=== PATIENT | male | born 1970 | race Caucasian/White ===

== ENCOUNTER 2019-06-04 13:45 | Emergency (ER) | payer SELFPAY ==
--- NOTE | 2019-06-04 13:52 | ERPHSYRPT ---
- History of Present Illness Time Seen by Provider: 06/04/19 13:52 Source: patient Exam Limitations: no limitations Physician History: The patient is a 48-year-old who presents with a chief complaint of a "cyst" noted to the left side of his groin. Onset reported was 4 days ago. 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 He denies fever, chills, history of diabetes mellitus and his last tetanus prophylaxis is unknown but he thinks is well over 10 years. Of note, the patient endorsed having what sounds to be a cutaneous abscess some number of years ago that reportedly grew out MRSA according to the patient's account. Currently, he is not complaining of a lot of pain and he is otherwise asymptomatic. States the pain has significantly gone down since the area started to spontaneous drain but initially was a throbbing/aching pain that was nonradiating and severe. Associated Symptoms: No nausea, No vomiting, No abdominal pain, No shortness of breath, No cough, No chest pain Allergies/Adverse Reactions: morphine Adverse Reaction (Verified 06/04/19 14:09) Hx Tetanus, Diphtheria Vaccination/Date Given: No Hx Influenza Vaccination/Date Given: No Hx Pneumococcal Vaccination/Date Given: No - Review of Systems Constitutional: No Fever, No Chills Abdominal/Gastrointestinal: No Symptoms Musculoskeletal: No Symptoms Skin: Other (Wound with induration and fluctance noted to left side of groin and with drainage) All Other Systems: Reviewed and Negative - Past Medical History Pertinent Past Medical History: No Neurological History: No Pertinent History ENT History: No Pertinent History Cardiac History: No Pertinent History Respiratory History: No Pertinent History Endocrine Medical History: No Pertinent History Musculoskeletal History: No Pertinent History GI Medical History: No Pertinent History History: No Pertinent History Psycho-Social History: No Pertinent History Male Reproductive Disorders: No Pertinent History Other Medical History: asthma as a child no current difficutly - Past Surgical History Past Surgical History: Yes Other Surgical History: I&D of left thigh - Social History Smoking Status: Current every day smoker How long have you smoked: 21yrs Exposure to second hand smoke: Yes Drug Use: none Patient Lives Alone: No - Nursing Vital Signs Nursing Vital Signs: Initial Vital Signs Pulse Rate 85 06/04/19 13:54 Respiratory Rate 18 06/04/19 13:54 Blood Pressure 114/66 06/04/19 13:54 O2 Sat by Pulse Oximetry 99 06/04/19 13:54 Pain Scale Pain Intensity 0 - Physical Exam General Appearance: no apparent distress, alert Eye Exam: PERRL/EOMI, No scleral icterus, No EOM palsy/anisocoria Ears, Nose, Throat Exam: other (Poor ) Neck Exam: normal inspection Respiratory Exam: normal breath sounds, lungs clear, airway intact, No respiratory distress Cardiovascular Exam: regular rate/rhythm, normal heart sounds, capillary refill <2 sec, No murmur, No friction rub, No gallop Gastrointestinal/Abdomen Exam: soft, No tenderness, No distention, No mass, No guarding, No ecchymosis Male Genitalia Exam: No hernia, No testicular tenderness, No testicular mass, No prostate tenderness, No prostate enlargement, No penile lesion, No penile discharge Rectal Exam: other (No evidence of perianal abscess or cellulitis) Extremity Exam: normal inspection Neurologic Exam: alert, oriented x 3, cooperative Skin Exam: other (There was a 5 x 5 cm area of induration and erythema noted to the left groin with a 1 to 2 cm area of central fluctuance with purulent/bloody drainage noted. There is no pain out of proportion upon palpation of this region or crepitus to suggest necrotizing soft tissue infection. There is no scrotal involvement or suprapubic abdominal wall involvement. There was no perianal or buttocks involvement.) SpO2 Interpretation: normal O2 Delivery: Room Air Procedures - Incision and Drainage Timeout: Performed Site: Left side of groin Anesthesia: 1% Lidocaine cc's of anesthesia: 4 Blade Size: 11 I & D Procedure: betadine prep, sterile drapes applied, culture obtained, gauze wick placed Results: small amount pus Progress: The patient underwent an incision and drainage after a field block and 1% lidocaine was performed. The patient tolerated the procedure well and there were no complications noted. - Course Nursing assessment & vital signs reviewed: Yes Ordered Tests: Active Orders 24 hr Category Date Time Status Wound Care STAT Care 06/04/19 14:08 Active CULTURE,WOUND Stat Lab 06/04/19 14:30 Received Medication Summary Discontinued Medications Generic Name Dose Route Start Last Admin Trade Name Yadira PRN Reason Stop Dose Admin Hydrocodone Bitart/Acetaminophen 1 tab 06/04/19 14:08 06/04/19 14:20 [place] 5/325 Mg PO 06/04/19 14:09 1 tab STAT ONE Administration Hydrocodone Bitart/Acetaminophen Confirm 06/04/19 14:14 [place] 5/325 Mg Administered 06/04/19 14:15 Dose 1 tab .ROUTE .STK-MED ONE Fentanyl Citrate 100 mcg 06/04/19 14:10 06/04/19 14:20 Sublimaze 100 Mcg/2 Ml INTRANASAL 06/04/19 14:11 100 mcg STAT ONE Administration Fentanyl Citrate Confirm 06/04/19 14:14 Sublimaze 100 Mcg/2 Ml Administered 06/04/19 14:15 Dose 100 mcg .ROUTE .STK-MED ONE Lidocaine HCl 5 ml 06/04/19 14:08 06/04/19 14:21 Xylocaine 1% Hcl 20 Ml Mdv IJ 06/04/19 14:09 5 ml STAT ONE Administration Lidocaine HCl Confirm 06/04/19 14:14 Xylocaine 1% Hcl 20 Ml Mdv Administered 06/04/19 14:15 Dose 10 ml .ROUTE .STK-MED ONE Tetanus/Diphtheria Toxoids Adsorbed 0.5 ml 06/04/19 14:08 06/04/19 14:19 Tenivac Vial IM 06/04/19 14:09 0.5 ml .ONCE ONE Administration Tetanus/Diphtheria Toxoids Adsorbed Confirm 06/04/19 14:14 Tenivac Vial Administered 06/04/19 14:15 Dose 0.5 ml IM .STK-MED ONE - Progress Progress: improved Progress Note: 06/04/19 16:30 Toxic appearance. I&D was performed and the outlined area of infection was traced with a skin marker. The patient's tetanus prophylaxis was updated and he was discharged with a prescription for Bactrim to take for antibiotic therapy this is likely MRSA. He was instructed to apply warm compresses to the affected area at least a couple times a day to promote ongoing drainage and to return either to the emergency department or follow-up at an urgent care with his primary care provider within 48 hours for a wound check. ED return precautions for wound infection was also given. The patient agreed with and verbally understood the discharge plan. Counseled pt/family regarding: diagnosis, need for follow-up - Departure Departure Disposition: Home Clinical Impression: Cutaneous abscess Condition: Stable Critical Care Time: No Referrals: NOE MONTERO [Primary Care Provider] - Instructions: Abscess Incision and Drainage Additional Instructions: Please follow-up in 48 hours for a wound check. You can return to the emergency department or be seen by her primary care physician or an urgent care to have this done. Please return to department immediately if your pain becomes worse or if you start to develop fever and chills in conjunction with your pain. So please return to department if you notice any redness or swelling extended beyond 1/4 inch from the outlined area of your abscess. Prescriptions: Hydrocodone/APAP 5-325 Tab^^^ [[place] 5-325 Tablet^^^] 1 tab PO Q6HPRN PRN #6 tablet MDD 6 PRN Reason: Pain Smz/Tmp Ds Tablet [Bactrim Ds Tablet] 1 udtab PO BID #14 tablet
[2019-06-04] MEDS ORDERED: SUBLIMAZE 100 MCG/2 ML ONE (14:14)
[2019-06-04] MEDS ORDERED: XYLOCAINE 1% HCL 20 ML MDV ONE (14:14)
[2019-06-04] MEDS ORDERED: NORCO 5/325 MG ONE (14:14)
[2019-06-04] MEDS ORDERED: TENIVAC VIAL IM ONE (14:14)
[2019-06-04] MEDS: TENIVAC VIAL IM ONE (14:19)
[2019-06-04] MEDS: SUBLIMAZE 100 MCG/2 ML INTRANASAL ONE (14:20)
[2019-06-04] MEDS: NORCO 5/325 MG PO ONE (14:20)
[2019-06-04] MEDS: XYLOCAINE 1% HCL 20 ML MDV IJ ONE (14:21)
[2019-06-04 14:24] VITALS: BP 114/66; PULSE 85; O2SAT 99
== END 2019-06-04 15:23 | disposition home or self-care (01) ==
LOC: ED 13:45
DX: L02.214 Cutaneous abscess of groin (principal); Z86.14 Personal history of Methicillin resistant Staphylococcus aureus infection
CPT/HCPCS: 10060; 87070; 90471; 90714; 96372; 99284; J3010; A9270-GY

== ENCOUNTER 2020-03-30 23:58 | Emergency (ER) | payer OTHER ==
[2020-03-31] MEDS ORDERED: Bicillin L-A 1.2 Mu/2ML SYRINGE IM ONE ×2 (00:38→00:44)
[2020-03-31] MEDS ORDERED: TORAdol 30 mg Injection IM ONE (00:39)
[2020-03-31] MEDS ORDERED: TORAdol 30 mg Injection ONE (00:44)
--- NOTE | 2020-03-31 00:45 | ERPHSYRPT ---
- History of Present Illness Time Seen by Provider: 03/31/20 00:45 Source: patient Exam Limitations: no limitations Physician History: Patient is a 49-year-old male presents to our ED with complaints of left-sided jaw swelling. Symptoms started 2 days ago. Patient states that he has a history of bad dentition and carious teeth. Patient's pain described as an ache that is well localized. No radiation. Pain rated 8 out of 10. Pain reproduced with mastication. No difficulty swallowing or maintaining secretions. No trauma. No fever. No headache. No nausea or vomiting. No chest pain or shortness of breath. Symptoms are moderate in intensity. Percussion to tooth #21 reproduces symptoms. Patient voices no other complaints at this time. Patient currently has an appointment scheduled with his dentist tomorrow morning at 8 AM. Timing/Duration: day(s) (2 days ago) Severity: moderate Modifying Factors: Improves With: other (No worsening symptoms. Patient has not taken any oral analgesics.) Associated Symptoms: denies symptoms, No nausea, No vomiting, No abdominal pain, No shortness of breath, No heartburn, No diaphoresis, No cough, No chest pain, No fever, No headaches, No loss of appetite, No malaise, No syncope, No seizure, No weakness Allergies/Adverse Reactions: morphine Adverse Reaction (Verified 03/31/20 00:33) Hx Tetanus, Diphtheria Vaccination/Date Given: No Hx Influenza Vaccination/Date Given: No Hx Pneumococcal Vaccination/Date Given: No Travel Risk - International Travel Have you traveled outside of the country in past 3 weeks: No (N) If Yes, where;: N - Coronavirus Screening Are you exhibiting any of the following symptoms?: No Close contact with a COVID-19 positive Pt in past 14-21 Days: No - Review of Systems Constitutional: No Symptoms, No Fever, No Chills Eyes: No Symptoms Ears, Nose, & Throat: No Symptoms Respiratory: No Symptoms, No Cough, No Dyspnea Cardiac: No Symptoms, No Chest Pain, No Edema, No Syncope Abdominal/Gastrointestinal: No Symptoms, No Abdominal Pain, No Nausea, No Vomiting, No Diarrhea Genitourinary Symptoms: No Symptoms, No Dysuria Musculoskeletal: No Symptoms, No Back Pain, No Neck Pain Skin: No Symptoms, No Rash Neurological: No Symptoms, No Dizziness, No Focal Weakness, No Sensory Changes Psychological: No Symptoms Endocrine: No Symptoms Hematologic/Lymphatic: No Symptoms Immunological/Allergic: No Symptoms All Other Systems: Reviewed and Negative - Past Medical History Pertinent Past Medical History: No Neurological History: No Pertinent History ENT History: No Pertinent History Cardiac History: No Pertinent History Respiratory History: No Pertinent History Endocrine Medical History: No Pertinent History Musculoskeletal History: No Pertinent History GI Medical History: No Pertinent History History: No Pertinent History Psycho-Social History: No Pertinent History Male Reproductive Disorders: No Pertinent History Other Medical History: asthma as a child no current difficutly - Past Surgical History Past Surgical History: Yes Other Surgical History: I&D of left thigh - Social History Smoking Status: Current every day smoker How long have you smoked: 21yrs Exposure to second hand smoke: Yes Drug Use: none Patient Lives Alone: No - Nursing Vital Signs Nursing Vital Signs: Initial Vital Signs Temperature 98.3 F 03/31/20 00:35 Pulse Rate 86 03/31/20 00:35 Respiratory Rate 18 03/31/20 00:35 Blood Pressure 125/88 03/31/20 00:35 O2 Sat by Pulse Oximetry 97 03/31/20 00:35 Pain Scale Pain Intensity 8 - Physical Exam General Appearance: no apparent distress, alert Eye Exam: PERRL/EOMI, eyes nml inspection Ears, Nose, Throat Exam: normal ENT inspection, TMs normal, pharynx normal, moist mucous membranes, other (Multiple carious teeth. Tooth #21 is subluxed. Adjacent to this tooth gingiva is swollen tender. There is no erythema to the floor of the mouth. No signs of Ludwigs angina.) Neck Exam: normal inspection, non-tender, supple, full range of motion Respiratory Exam: normal breath sounds, lungs clear, No respiratory distress Cardiovascular Exam: regular rate/rhythm, normal heart sounds, normal peripheral pulses Gastrointestinal/Abdomen Exam: soft, normal bowel sounds, No tenderness, No mass Back Exam: normal inspection, normal range of motion, No CVA tenderness, No vertebral tenderness Extremity Exam: normal inspection, normal range of motion, pelvis stable Neurologic Exam: alert, oriented x 3, cooperative, normal mood/affect, nml cerebellar function, nml station & gait, sensation nml, No motor deficits Skin Exam: normal color, warm, dry, No rash Lymphatic Exam: No adenopathy SpO2 Interpretation: normal SpO2: 97 O2 Delivery: Room Air - Course Nursing assessment & vital signs reviewed: Yes Ordered Tests: Medication Summary Discontinued Medications Generic Name Dose Route Start Last Admin Trade Name Yadira PRN Reason Stop Dose Admin Ketorolac Tromethamine 60 mg 03/31/20 00:39 03/31/20 00:48 Toradol 30 Mg Injection IM 03/31/20 00:40 60 mg STAT ONE Administration Ketorolac Tromethamine Confirm 03/31/20 00:44 Toradol 30 Mg Injection Administered 03/31/20 00:45 Dose 60 mg .ROUTE .STK-MED ONE Penicillin G Benzathine 1.2 mu 03/31/20 00:38 03/31/20 00:49 Bicillin L-A 1.2 Mu/2ml Syringe IM 03/31/20 00:39 1.2 mu STAT ONE Administration Penicillin G Benzathine Confirm 03/31/20 00:44 Bicillin L-A 1.2 Mu/2ml Syringe Administered 03/31/20 00:45 Dose 1.2 mu IM .STK-MED ONE - Progress Progress: improved Progress Note: 03/31/20 00:56 Patient reassessed. Pain improved after administration of IM Toradol. Patient received a dose of Bicillin in our ED. A prescription for penicillin VK was forwarded to patient's pharmacy. Patient tolerating p.o. No trismus no drooling no airway compromise. No indication for admission or further work-up at this time. Will discharge home. Patient will follow up with his dentist tomorrow as scheduled. Patient voices no other complaints concerns at this time. Counseled pt/family regarding: diagnosis, need for follow-up - Departure Departure Disposition: Home Clinical Impression: Dental abscess, Carious teeth Condition: Stable Critical Care Time: No Referrals: NOE MONTERO [Primary Care Provider] - Instructions: Tooth Abscess (DC), Tooth Decay, Adult (DC), Dental Pain (DC) Additional Instructions: Discharge/Care Plan SADIELORE ANGEL was seen on 03/31/20 in the Emergency Room. The patient was counseled regarding Diagnosis,Lab results, Imaging studies, need for follow up and when to return to the Emergency Room. Prescriptions given: Discharge Note I have spoken with the patient and/or caregivers. I have explained the patient's condition, diagnosis and treatment plan based on the information available to me at this time. I have answered the patient's and/or caregiver's questions and addressed any concerns. The patient and/or caregivers have as good understanding of the patient's diagnosis, condition and treatment plan as can be expected at this point. The vital signs have been stable. The patient's condition is stable and appropriate for discharge from the emergency department. The patient will pursue further outpatient evaluation with the primary care physician or other designated or consulting physician as outlined in the discharge instructions. The patient and/or caregivers are agreeable to this plan of care and follow-up instructions have been explained in detail. The patient and/or caregivers have received these instruction. The patient/and or caregivers are aware that any significant change in condition or worsening of symptoms should prompt an immediate return to this or the closest emergency department or call 911. Prescriptions: Penicillin V Potassium 500 mg PO TID 21 Days #7 tablet
[2020-03-31 01:04] VITALS: BP 119/84; PULSE 85; O2SAT 96
== END 2020-03-31 01:04 | disposition home or self-care (01) ==
LOC: ED 23:58
DX: K04.7 Periapical abscess without sinus (principal); K02.9 Dental caries, unspecified
CPT/HCPCS: 96372; 99284; J0561; J1885

== ENCOUNTER 2020-12-12 10:37 | Emergency (ER) | payer OTHER ==
[2020-12-12] MEDS ORDERED: Sodium Chloride 0.9% 1000 ML 1,000 ML IV STA (11:49)
[2020-12-12] MEDS ORDERED: Sodium Chloride 0.9% 1000 ML 1,000 ML ONE (11:52)
[2020-12-12 12:16] LABS: Absolute Neutrophil Ct (ANC) 4.32 (1.4-6.9); BASOPHIL % 0.6 % (0.0-0.4); Basophil (Absolute #) 0.04 (0-0.4); Eosinophil % 6.7 % (0.00-5.0); Eosinophil (Absolute #) 0.46 (0-0.5); Hematocrit 49.1 % (42-50); Hemoglobin 16.1 gm/dl (12.5-18.0); Lymphocyte (Absolute #) 1.52 (1.0-4.6); Lymphocytes % 22.1 % (24.0-44.0); Mean Cell Volume 91.3 fl (78-100); Mean Corpuscular Hemoglobin 29.9 pg (26-32); Mean Corpuscular Hgb Concent. 32.8 g/dl (32-36); Mean Platelet Volume 10.6 fl (7.5-11.0); Monocyte (Absolute #) 0.55 (0.0-1.3); Neutrophil % 62.6 % (36.0-66.0); Platelet Count 179 K/mm3 (150-450); Red Blood Count 5.38 M/mm3 (4.1-5.6); Red Cell Distribution Width 13.6 % (11.5-14.0); White Blood Count 6.9 K/mm3 (4.0-10.5)
[2020-12-12 12:17] LABS: INR 0.98 (0.8-3.0); PROTIME 11.6 SECONDS (9.4-12.5)
[2020-12-12 12:20] LABS: PTT 32.6 SECONDS (25.1-36.5)
[2020-12-12 12:35] LABS: ALBUMIN 4.3 g/dL (3.5-5.0); ANION GAP 11.9 MEQ/L (5-15); BILIRUBIN,TOTAL 0.7 mg/dL (0.2-1.3); Calcium 9.4 mg/dL (8.4-10.2); Creatinine 1 1.35 mg/dL (0.66-1.25); EST GLOMERULAR FILTRATION RATE 59.7 ML/MIN; Potassium 4.5 mmol/L (3.5-5.1); Total Protein 7.6 g/dL (6.3-8.2)
--- NOTE | 2020-12-12 13:00 | ERPHSYRPT ---
- History of Present Illness Time Seen by Provider: 12/12/20 11:18 Historian: patient Exam Limitations: no limitations Patient Subjective Stated Complaint: PT states "I went to the bathroom and my stool was harder than normal and I noticed the toilet had quite a bit of bright red blood in it. I am having just a little belly pain as well." Triage Nursing Assessment: Pt presented alert and oriented X 3, skin pwd. Pt ambulates with an upright steady gait, able to speak in clear full sentences. pt in no apparent respiratory distress. Physician History: 50 years old male with family history of colon cancer presented in the ER with chief complaint of rectal bleed off and on for the last 3 days. Patient reports he has history of constipation and noticed some blood with bowel movement 3 days ago and this has been happening since then and total of 5 episodes with blood towards the end of the stool and prior to arrival was quite a bit. Does have history of hemorrhoids and do not think it is hemorrhoidal bleeding as it does not hurt to defecate but has generalized abdominal discomfort. No fever or chills reported. No history of colonoscopy done. Not taking any blood thinners. Timing/Duration: day(s) (3), intermittent, sudden, worse Activities at Onset: other Quality: fullness Abdominal Pain Onset Location: generalized abdomen Pain Radiation: no radiation Severity of Pain-Max: mild Severity of Pain-Current: mild Modifying Factors: Improves With: nothing Associated Symptoms: denies symptoms Previous symptoms: no prior history Allergies/Adverse Reactions: morphine Adverse Reaction (Verified 03/31/20 00:33) Home Medications: No Reportable Medications [No Reported Medications] 12/12/20 [History] Hx Tetanus, Diphtheria Vaccination/Date Given: No Hx Influenza Vaccination/Date Given: No Hx Pneumococcal Vaccination/Date Given: No Immunizations Up to Date: Yes Travel Risk - International Travel Have you traveled outside of the country in past 3 weeks: No - Coronavirus Screening Are you exhibiting any of the following symptoms?: No Close contact with a COVID-19 positive Pt in past 14-21 Days: No - Vaccine Status Have you recieved a Covid-19 vaccination: No - Review of Systems Constitutional: No Symptoms Eyes: No Symptoms Ears, Nose, & Throat: No Symptoms Respiratory: No Symptoms Cardiac: No Symptoms Abdominal/Gastrointestinal: Abdominal Pain, Hematochezia Genitourinary Symptoms: No Symptoms Musculoskeletal: No Symptoms Skin: No Symptoms Neurological: No Symptoms Psychological: No Symptoms Endocrine: No Symptoms Hematologic/Lymphatic: No Symptoms Immunological/Allergic: No Symptoms - Past Medical History Pertinent Past Medical History: No Neurological History: No Pertinent History ENT History: No Pertinent History Cardiac History: No Pertinent History Respiratory History: No Pertinent History Endocrine Medical History: No Pertinent History Musculoskeletal History: No Pertinent History GI Medical History: No Pertinent History History: No Pertinent History Psycho-Social History: No Pertinent History Male Reproductive Disorders: No Pertinent History Other Medical History: asthma as a child no current difficutly - Past Surgical History Past Surgical History: Yes Other Surgical History: I&D of left thigh - Social History Smoking Status: Current every day smoker How long have you smoked: 21yrs Exposure to second hand smoke: Yes Drug Use: none Patient Lives Alone: No - Nursing Vital Signs Nursing Vital Signs: Initial Vital Signs Temperature 97.5 F 12/12/20 10:48 Pulse Rate 71 12/12/20 10:48 Respiratory Rate 20 12/12/20 10:48 Blood Pressure 120/69 12/12/20 10:48 O2 Sat by Pulse Oximetry 97 12/12/20 10:48 Pain Scale Pain Intensity 2 - Physical Exam General Appearance: no apparent distress, alert Eye Exam: PERRL/EOMI, eyes nml inspection Ears, Nose, Throat Exam: normal ENT inspection, pharynx normal Neck Exam: normal inspection, non-tender, supple, full range of motion Respiratory Exam: normal breath sounds, lungs clear Cardiovascular Exam: regular rate/rhythm, normal heart sounds Gastrointestinal/Abdomen Exam: soft, normal bowel sounds, No tenderness Rectal Exam: normal exam, normal rectal tone, blood, other (Normal tone. No fissure or external hemorrhoids but does have fresh blood), No hemorrhoids Extremity Exam: normal inspection, normal range of motion Neurologic Exam: alert, oriented x 3, cooperative Skin Exam: normal color SpO2 Interpretation: normal SpO2: 98 O2 Delivery: Room Air Ordered Tests: Active Orders 24 hr Category Date Time Status IV Insertion STAT Care 12/12/20 11:49 Active ABDOMEN AND PELVIS W CONTRAST [CT] Stat Exams 12/12/20 11:49 Taken CBC W DIFF Stat Lab 12/12/20 12:00 Completed CMP Stat Lab 12/12/20 12:00 Completed LIPASE Stat Lab 12/12/20 12:00 Completed PROTIME WITH INR Stat Lab 12/12/20 12:00 Completed PTT Stat Lab 12/12/20 12:00 Completed UA W/RFX UR CULTURE Stat Lab 12/12/20 12:22 Completed Medication Summary Discontinued Medications Generic Name Dose Route Start Last Admin Trade Name Yadira PRN Reason Stop Dose Admin Sodium Chloride 1,000 mls @ 999 mls/hr 12/12/20 11:49 12/12/20 12:55 Sodium Chloride 0.9% 1000 Ml IV 12/12/20 12:49 Infused .Q1H1M STA Infusion Sodium Chloride Confirm 12/12/20 11:52 Sodium Chloride 0.9% 1000 Ml Administered 12/12/20 11:53 Dose 1,000 mls @ ud .ROUTE .STK-MED ONE Lab/Rad Data: Laboratory Result Diagrams 12/12/20 12:00 12/12/20 12:00 Laboratory Results 12/12/20 12/12/20 12/12/20 Range/Units 12:22 12:00 12:00 WBC (4.0-10.5) K/mm3 RBC (4.1-5.6) M/mm3 Hgb (12.5-18.0) gm/dl Hct (42-50) % MCV (78-100) fl MCH (26-32) pg MCHC (32-36) g/dl RDW (11.5-14.0) % Plt Count (150-450) K/mm3 MPV (7.5-11.0) fl Gran % (36.0-66.0) % Eos # (Auto) (0-0.5) Absolute Lymphs (auto) (1.0-4.6) Absolute Monos (auto) (0.0-1.3) Lymphocytes % (24.0-44.0) % Monocytes % (0.0-12.0) % Eosinophils % (0.00-5.0) % Basophils % (0.0-0.4) % Absolute Granulocytes (1.4-6.9) Basophils # (0-0.4) PT 11.6 (9.4-12.5) SECONDS INR 0.98 (0.8-3.0) APTT 32.6 (25.1-36.5) SECONDS Sodium 137 (137-145) mmol/L Potassium 4.5 (3.5-5.1) mmol/L Chloride 101 (98-107) mmol/L Carbon Dioxide 29 (22-30) mmol/L Anion Gap 11.9 (5-15) MEQ/L BUN 16 (9-20) mg/dL Creatinine 1.35 H (0.66-1.25) mg/dL Estimated GFR 59.7 ML/MIN Glucose 93 (74-106) mg/dL Calcium 9.4 (8.4-10.2) mg/dL Total Bilirubin 0.70 (0.2-1.3) mg/dL AST 44 (17-59) U/L ALT 45 (0-50) U/L Alkaline Phosphatase 126 (38-126) U/L Serum Total Protein 7.6 (6.3-8.2) g/dL Albumin 4.3 (3.5-5.0) g/dL Lipase 78 (23-300) U/L Urine Color YELLOW (YELLOW) Urine Appearance CLEAR (CLEAR) Urine pH 7.0 (5-6) Ur Specific [place] 1.006 (1.005-1.025) Urine Protein NEGATIVE (Negative) Urine Ketones NEGATIVE (NEGATIVE) Urine Blood NEGATIVE (0-5) Álvaro/ul Urine Nitrite NEGATIVE (NEGATIVE) Urine Bilirubin NEGATIVE (NEGATIVE) Urine Urobilinogen NEGATIVE (0-1) mg/dL Ur Leukocyte Esterase NEGATIVE (NEGATIVE) Urine WBC (Auto) NONE (0-5) /HPF Urine RBC (Auto) NONE (0-2) /HPF U Epithel Cells (Auto) NONE (FEW) /HPF Urine Bacteria (Auto) NONE (NEGATIVE) /HPF Urine Culture Reflexed NO (NO) Urine Glucose NEGATIVE (NEGATIVE) mg/dL 12/12/20 Range/Units 12:00 WBC 6.9 (4.0-10.5) K/mm3 RBC 5.38 (4.1-5.6) M/mm3 Hgb 16.1 (12.5-18.0) gm/dl Hct 49.1 (42-50) % MCV 91.3 (78-100) fl MCH 29.9 (26-32) pg MCHC 32.8 (32-36) g/dl RDW 13.6 (11.5-14.0) % Plt Count 179 (150-450) K/mm3 MPV 10.6 (7.5-11.0) fl Gran % 62.6 (36.0-66.0) % Eos # (Auto) 0.46 (0-0.5) Absolute Lymphs (auto) 1.52 (1.0-4.6) Absolute Monos (auto) 0.55 (0.0-1.3) Lymphocytes % 22.1 L (24.0-44.0) % Monocytes % 8.0 (0.0-12.0) % Eosinophils % 6.7 H (0.00-5.0) % Basophils % 0.6 (0.0-0.4) % Absolute Granulocytes 4.32 (1.4-6.9) Basophils # 0.04 (0-0.4) PT (9.4-12.5) SECONDS INR (0.8-3.0) APTT (25.1-36.5) SECONDS Sodium (137-145) mmol/L Potassium (3.5-5.1) mmol/L Chloride (98-107) mmol/L Carbon Dioxide (22-30) mmol/L Anion Gap (5-15) MEQ/L BUN (9-20) mg/dL Creatinine (0.66-1.25) mg/dL Estimated GFR ML/MIN Glucose (74-106) mg/dL Calcium (8.4-10.2) mg/dL Total Bilirubin (0.2-1.3) mg/dL AST (17-59) U/L ALT (0-50) U/L Alkaline Phosphatase (38-126) U/L Serum Total Protein (6.3-8.2) g/dL Albumin (3.5-5.0) g/dL Lipase (23-300) U/L Urine Color (YELLOW) Urine Appearance (CLEAR) Urine pH (5-6) Ur Specific [place] (1.005-1.025) Urine Protein (Negative) Urine Ketones (NEGATIVE) Urine Blood (0-5) Álvaro/ul Urine Nitrite (NEGATIVE) Urine Bilirubin (NEGATIVE) Urine Urobilinogen (0-1) mg/dL Ur Leukocyte Esterase (NEGATIVE) Urine WBC (Auto) (0-5) /HPF Urine RBC (Auto) (0-2) /HPF U Epithel Cells (Auto) (FEW) /HPF Urine Bacteria (Auto) (NEGATIVE) /HPF Urine Culture Reflexed (NO) Urine Glucose (NEGATIVE) mg/dL - Progress Progress: improved, re-examined Progress Note: 12/12/20 15:28 50 years old is evaluated for rectal bleed and some abdominal discomfort. Did not want any pain medications. Given fluid bolus. Has stable H&H. Stable chemistries. I have obtained CT abdomen pelvis with contrast which is negative for colitis/diverticulitis or any other acute findings. Patient did not have any bleeding while in the ER. Possible could be internal hemorrhoids or some polyps bleeding. Is not hemodynamically compromised. Not on any blood thinner. Recommended avoiding NSAIDs and outpatient follow-up with GI for scopes. Discussed signs symptoms of worsening needing return to ER which he seems understanding. Stable for discharge. Counseled pt/family regarding: lab results, diagnosis, need for follow-up, rad results - Departure Departure Disposition: Home Clinical Impression: Rectal bleed Abdominal pain Qualifiers: Abdominal location: unspecified location Qualified Code(s): R10.9 - Unspecified abdominal pain Condition: Stable Critical Care Time: No Referrals: NOE MONTERO [Primary Care Provider] - (Call tomorrow for reevaluation.) TRIPP MONGE MD [CONSULTING PHYSICIAN] - (Call tomorrow for reevaluation) Instructions: Gastrointestinal Bleeding (DC) Additional Instructions: Drink plenty of fluids. Do not take ibuprofen/naproxen or any other NSAIDs. Take MiraLAX/stool softener to avoid constipation. Follow-up with primary care and gastroenterology for reevaluation and you probably needs endoscopy/colonoscopy to further evaluate the source of bleeding. Return to ER if has worsening of bleeding/abdominal pain/fever chills etc.
[2020-12-12 13:01] LABS: Appearance CLEAR (CLEAR); Bilirubin NEGATIVE (NEGATIVE); Blood NEGATIVE Ery/ul (0-5); Glucose NEGATIVE (NEGATIVE); Ketones NEGATIVE (NEGATIVE); Leukocyte Esterase NEGATIVE (NEGATIVE); Nitrite NEGATIVE (NEGATIVE); Protein,Urine Dip NEGATIVE (Negative); Specific Gravity 1.006 (1.005-1.025); Urobilinogen NEGATIVE mg/dL (0-1)
[2020-12-12 15:34] VITALS: BP 103/75; PULSE 61; O2SAT 97
--- NOTE | 2020-12-12 18:02 | XRAY ---
Indication: Abdomen/pelvic pain. Blood in stool. Multiple contiguous axial images obtained through the abdomen and pelvis using 80 cc Isovue 370 contrast. Comparison: None Lung bases demonstrates minimal bibasilar dependent atelectasis and small left lower lobe calcified granuloma. Heart not enlarged. Small hiatal hernia. Noncontrasted stomach and bowel loops appear nonobstructed. Normal appendix. Mild scattered colonic fecal debris throughout. No free fluid/air. Chronic pancreatitis calcifications. Tiny 4 mm hepatic cyst near the dome of the diaphragm. Remaining liver, gallbladder, pancreas, spleen, adrenal glands, kidneys, ureters, bladder, and aorta are unremarkable. No pathologic retroperitoneal lymphadenopathy. Osseous structures intact. No ventral or inguinal hernias. Impression: 1. Small hiatal hernia, mild diffuse fecal stasis, tiny hepatic cyst, chronic pancreatitis calcifications, and old granulomatous disease. 2. Remaining CT abdomen/pelvis with contrast exam is negative. Comment: Preliminary interpretation made by C. No critical discrepancy.
== END 2020-12-12 15:35 | disposition home or self-care (01) ==
LOC: ED 10:37
DX: K62.5 Hemorrhage of anus and rectum (principal); R10.9 Unspecified abdominal pain; K92.1 Melena
CPT/HCPCS: 36000; 36415; 74177; 80053; 81001; 83690; 85025; 85610; 85730; 96360; 99284

== ENCOUNTER 2021-07-23 11:28 | Emergency (ER) | payer OTHER ==
[2021-07-23] MEDS ORDERED: Zofran 4 MG/2 ML VIAL IV ONE (11:43)
[2021-07-23] MEDS ORDERED: Sodium Chloride 0.9% 1000 ML 1,000 ML IV STA (11:43)
[2021-07-23] MEDS ORDERED: Sodium Chloride 0.9% 1000 ML 1,000 ML ONE (11:48)
[2021-07-23] MEDS ORDERED: Zofran 4 MG/2 ML VIAL ONE (11:48)
--- NOTE | 2021-07-23 12:09 | ERPHSYRPT ---
- History of Present Illness Time Seen by Provider: 07/23/21 11:36 Source: patient Exam Limitations: no limitations Patient Subjective Stated Complaint: Pt c/o of cough, chest congestion, headache, body aches, fever, vomiting for almost a week Triage Nursing Assessment: Pt was brought to the ER by his , vitals wnl, rates overall body pain as 9/10, last vomited 2 days ago, denies diarrhea, non productive cough, pulses normal, no difficulties with breathing, walked into the ER with no difficulties, doesn't appear to be in any distress Physician History: 50yo with h/o heavy tobacco use presented with 1 week h/o flu like sx with negative outpatient COVID 19. 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 c/o nausea /vomiting occasionally without abd pain. has smoker cough but c/o wosening . Timing/Duration: week(s) (1), gradual onset, worse Cough Quality/Degree: productive cough Modifying Factors: Worsens With: coughing, exertion Associated Symptoms: fever, chills, chest pain/soreness, cough, dizziness, headache, muscle aches, nasal congestion, shortness of breath, sinus infection, sore throat, wheezing Allergies/Adverse Reactions: morphine Adverse Reaction (Verified 07/23/21 11:44) Hx Tetanus, Diphtheria Vaccination/Date Given: No Hx Influenza Vaccination/Date Given: No Hx Pneumococcal Vaccination/Date Given: No Travel Risk - International Travel Have you traveled outside of the country in past 3 weeks: No - Coronavirus Screening Are you exhibiting any of the following symptoms?: Yes Symptoms: Fever, Cough: New Onset, Vomiting/Diarrhea, Headaches/Body Aches/Fatigue - Vaccine Status Have you recieved a Covid-19 vaccination: No - Review of Systems Constitutional: Fever, Chills, Fatigue, Weakness Eyes: No Symptoms Ears, Nose, & Throat: Nose Congestion Respiratory: Cough, Dyspnea, Wheezing Cardiac: No Palpitations, No Syncope Abdominal/Gastrointestinal: Nausea, Vomiting Genitourinary Symptoms: No Symptoms Musculoskeletal: Myalgias Skin: No Symptoms Neurological: Headache Psychological: Anxiety Endocrine: No Symptoms Hematologic/Lymphatic: No Symptoms Immunological/Allergic: No Symptoms - Past Medical History Pertinent Past Medical History: No Neurological History: No Pertinent History ENT History: No Pertinent History Cardiac History: No Pertinent History Respiratory History: No Pertinent History Endocrine Medical History: No Pertinent History Musculoskeletal History: No Pertinent History GI Medical History: No Pertinent History History: No Pertinent History Psycho-Social History: No Pertinent History Male Reproductive Disorders: No Pertinent History Other Medical History: asthma as a child no current difficutly - Past Surgical History Past Surgical History: Yes Other Surgical History: I&D of left thigh - Social History Smoking Status: Current every day smoker How long have you smoked: 21yrs Exposure to second hand smoke: Yes Drug Use: none Patient Lives Alone: No - Nursing Vital Signs Nursing Vital Signs: Initial Vital Signs O2 Sat by Pulse Oximetry 95 07/23/21 11:36 Pain Scale Pain Intensity 0 - Physical Exam General Appearance: no apparent distress, alert, anxiety Eye Exam: PERRL/EOMI, eyes nml inspection Ears, Nose, Throat Exam: normal ENT inspection, TMs normal, pharynx normal Neck Exam: normal inspection, non-tender, supple, full range of motion, No meningismus Respiratory Exam: diminished breath sounds, rhonchi, wheezing Cardiovascular Exam: regular rate/rhythm, normal heart sounds Gastrointestinal/Abdomen Exam: soft, normal bowel sounds, No tenderness, No guarding Back Exam: normal inspection, normal range of motion Extremity Exam: normal inspection, normal range of motion, pelvis stable Neurologic Exam: alert, oriented x 3, cooperative Skin Exam: normal color SpO2 Interpretation: normal SpO2: 95 O2 Delivery: Room Air Ordered Tests: Active Orders 24 hr Category Date Time Status Hemmer Chainstitch STAT Care 07/23/21 12:12 Completed EKG-ER Only STAT Care 07/23/21 12:12 Completed IV Insertion STAT Care 07/23/21 11:43 Completed IV Insertion-2nd Peripheral STAT Care 07/23/21 12:04 Completed NPO (ED) STAT Care 07/23/21 11:43 Completed Oxygen-ED Only Nasal Cannula 2 lpm Care 07/23/21 11:55 Completed CHEST 1 VIEW (PORTABLE) Stat Exams 07/23/21 11:43 Completed CHEST WITH CONTRAST [CT] Stat Exams 07/23/21 12:09 Completed CBC W DIFF Stat Lab 07/23/21 11:40 Completed CMP Stat Lab 07/23/21 11:40 Completed LIPASE Stat Lab 07/23/21 11:40 Completed Lactic Acid Stat Lab 07/23/21 13:58 Completed Manual Differential NC Stat Lab 07/23/21 11:40 Completed Respiratory Therapy Assessment ONCE RT 07/23/21 14:51 Completed Medication Summary Discontinued Medications Generic Name Dose Route Start Last Admin Trade Name Yadira PRN Reason Stop Dose Admin Hydrocodone Bitart/Acetaminophen 10 ml 07/23/21 15:14 07/23/21 15:18 Hydrocodone/Acetaminophen 5 Ml Udcup PO 07/23/21 15:15 10 ml STAT STA Administration Hydrocodone Bitart/Acetaminophen Confirm 07/23/21 15:17 Hydrocodone/Acetaminophen 5 Ml Udcup Administered 07/23/21 15:18 Dose 10 ml .ROUTE .STK-MED ONE Albuterol/Ipratropium 3 ml 07/23/21 14:07 07/23/21 14:35 Ipratropium/Albuterol Sulfate 3 Ml Ampul.Neb IH 07/23/21 14:08 3 ml STAT ONE Administration Albuterol/Ipratropium Confirm 07/23/21 14:36 Ipratropium/Albuterol Sulfate 3 Ml Ampul.Neb Administered 07/23/21 14:37 Dose 3 ml IH .STK-MED ONE Methylprednisolone Sodium 0 mg 07/23/21 14:08 07/23/21 14:11 Succinate 125 mg/ Sterile IV 07/23/21 14:09 125 mg Water 2 ml STAT ONE Administration Sodium Chloride 1,000 mls @ 999 mls/hr 07/23/21 11:43 07/23/21 13:42 Sodium Chloride 0.9% 1000 Ml IV 07/23/21 12:43 Infused .Q1H1M STA Infusion Sodium Chloride Confirm 07/23/21 11:48 Sodium Chloride 0.9% 1000 Ml Administered 07/23/21 11:49 Dose 1,000 mls @ ud .ROUTE .STK-MED ONE Levofloxacin 500 mg 07/23/21 14:08 07/23/21 14:11 Levofloxacin 250 Mg Tab PO 07/23/21 14:09 500 mg STAT ONE Administration Levofloxacin Confirm 07/23/21 14:09 Levofloxacin 250 Mg Tab Administered 07/23/21 14:10 Dose 500 mg .ROUTE .STK-MED ONE Methylprednisolone Sodium Succinate Confirm 07/23/21 14:09 Methylprednis Sod Succ 125 Mg/2 Ml Vial Administered 07/23/21 14:10 Dose 125 mg .ROUTE .STK-MED ONE Ondansetron HCl 4 mg 07/23/21 11:43 04/23/22 11:50 Ondansetron Hcl 4 Mg/2 Ml Vial IV 07/23/21 11:44 4 mg STAT ONE Administration Ondansetron HCl Confirm 07/23/21 11:48 Ondansetron Hcl 4 Mg/2 Ml Vial Administered 07/23/21 11:49 Dose 4 mg .ROUTE .[email or web address]-[email or web address] ONE Sterile Water Confirm 07/23/21 14:09 Water For Injection,Sterile 10 Ml Vial Administered 07/23/21 14:10 Dose 10 ml IJ .Indigoz-MED ONE Lab/Rad Data: Laboratory Result Diagrams 07/23/21 11:40 07/23/21 11:40 Laboratory Results 07/23/21 07/23/21 07/23/21 Range/Units 13:58 12:00 11:40 WBC (4.0-10.5) K/mm3 RBC (4.1-5.6) M/mm3 Hgb (12.5-18.0) gm/dl Hct (42-50) % MCV (78-100) fl MCH (26-32) pg MCHC (32-36) g/dl RDW (11.5-14.0) % Plt Count (150-450) K/mm3 MPV (7.5-11.0) fl Segmented Neutrophils (36.-66.) % Band Neutrophils (0.0-2.0) % Lymphocytes (Manual) (24-44) % Monocytes (Manual) (0.0-12.0) % Dohle Bodies Platelet Estimate (NORMAL) RBC Morphology Poikilocytosis Anisocytosis Sodium 138 (137-145) mmol/L Potassium 3.8 (3.5-5.1) mmol/L Chloride 102 (98-107) mmol/L Carbon Dioxide 22 (22-30) mmol/L Anion Gap 17.1 H (5-15) MEQ/L BUN 16 (9-20) mg/dL Creatinine 1.15 (0.66-1.25) mg/dL Estimated GFR > 60.0 ML/MIN Glucose 108 H (74-106) mg/dL Lactic Acid 1.8 (0.4-2.0) Calcium 8.5 (8.4-10.2) mg/dL Total Bilirubin 2.70 H (0.2-1.3) mg/dL AST 44 (17-59) U/L ALT 34 (0-50) U/L Alkaline Phosphatase 204 H (38-126) U/L Serum Total Protein 7.2 (6.3-8.2) g/dL Albumin 3.8 (3.5-5.0) g/dL Lipase 39 (23-300) U/L Influenza Type A Ag NEGATIVE (NEGATIVE) Influenza Type B Ag NEGATIVE (NEGATIVE) RSV (PCR) NEGATIVE (Negative) SARS-CoV-2 (PCR) NEGATIVE (NEGATIVE) 07/23/21 Range/Units 11:40 WBC 12.4 H (4.0-10.5) K/mm3 RBC 5.47 (4.1-5.6) M/mm3 Hgb 15.9 (12.5-18.0) gm/dl Hct 47.4 (42-50) % MCV 86.7 (78-100) fl MCH 29.1 (26-32) pg MCHC 33.5 (32-36) g/dl RDW 14.5 H (11.5-14.0) % Plt Count 103 L (150-450) K/mm3 MPV 11.8 H (7.5-11.0) fl Segmented Neutrophils 76 H (36.-66.) % Band Neutrophils 5 H (0.0-2.0) % Lymphocytes (Manual) 14 L (24-44) % Monocytes (Manual) 5 (0.0-12.0) % Dohle Bodies 1+ Platelet Estimate NORMAL (NORMAL) RBC Morphology ABNORMAL Poikilocytosis 1+ Anisocytosis 1+ Sodium (137-145) mmol/L Potassium (3.5-5.1) mmol/L Chloride (98-107) mmol/L Carbon Dioxide (22-30) mmol/L Anion Gap (5-15) MEQ/L BUN (9-20) mg/dL Creatinine (0.66-1.25) mg/dL Estimated GFR ML/MIN Glucose (74-106) mg/dL Lactic Acid (0.4-2.0) Calcium (8.4-10.2) mg/dL Total Bilirubin (0.2-1.3) mg/dL AST (17-59) U/L ALT (0-50) U/L Alkaline Phosphatase (38-126) U/L Serum Total Protein (6.3-8.2) g/dL Albumin (3.5-5.0) g/dL Lipase (23-300) U/L Influenza Type A Ag (NEGATIVE) Influenza Type B Ag (NEGATIVE) RSV (PCR) (Negative) SARS-CoV-2 (PCR) (NEGATIVE) - Progress Progress: improved Air Movement: good Progress Note: 07/23/21 15:08 has right side pneumonia, given duoneb/steroid and started on levaquin. CTA negative for obvious PE but chronic changes.maintaning o2 sat at room air around 95%, not in any distress, stable for dc 07/23/21 15:09 Blood Culture(s) Obtained: No Antibiotics given: Yes Counseled pt/family regarding: lab results, diagnosis, need for follow-up, rad results - Departure Departure Disposition: Home Clinical Impression: Pneumonia Qualifiers: Pneumonia type: due to unspecified organism Laterality: unspecified laterality Lung location: unspecified part of lung Qualified Code(s): J18.9 - Pneumonia, unspecified organism Condition: Stable Critical Care Time: No Referrals: NOE MONTERO [Primary Care Provider] - Follow up/PCP as directed (in 2 days for re evaluation) Instructions: Pneumonia, Adult (DC), Cough, Adult (DC) Additional Instructions: no osmoking, take tylenol/ibuprofen as needed for fever/body aches. outpatient follow up, return for worsening cough/persistent high grade fever or if develop shortness of breath etc. Prescriptions: Albuterol Sulfate [Albuterol Sulfate Hfa] 8.5 gm IH Q6H PRN 7 Days #1 inh PRN Reason: Cough Prednisone 20 mg [Deltasone 20 mg] 60 mg PO DAILY 5 Days #15 tablet Levofloxacin [Levaquin 500 MG Tablet] 500 mg PO DAILY #9 tablet
[2021-07-23 12:14] LABS: Hematocrit 47.4 % (42-50); Hemoglobin 15.9 gm/dl (12.5-18.0); Mean Cell Volume 86.7 fl (78-100); Mean Corpuscular Hemoglobin 29.1 pg (26-32); Mean Corpuscular Hgb Concent. 33.5 g/dl (32-36); Mean Platelet Volume 11.8 fl (7.5-11.0); Platelet Count 103 K/mm3 (150-450); Red Blood Count 5.47 M/mm3 (4.1-5.6); Red Cell Distribution Width 14.5 % (11.5-14.0); White Blood Count 12.4 K/mm3 (4.0-10.5)
[2021-07-23 12:18] LABS: ALBUMIN 3.8 g/dL (3.5-5.0); ALKALINE PHOSPHATASE 204 U/L (38-126); ANION GAP 17.1 MEQ/L (5-15); BLOOD UREA NITROGEN 16 mg/dL (9-20); CHLORIDE 102 mmol/L (98-107); Calcium 8.5 mg/dL (8.4-10.2); Carbon Dioxide 22 mmol/L (22-30); Creatinine 1 1.15 mg/dL (0.66-1.25); EST GLOMERULAR FILTRATION RATE > 60.0 ML/MIN; Glucose 108 mg/dL (74-106); LIPASE 39 U/L (23-300); Potassium 3.8 mmol/L (3.5-5.1); SGOT/AST 44 U/L (17-59); SGPT/ALT 34 U/L (0-50); SODIUM 138 mmol/L (137-145); Total Protein 7.2 g/dL (6.3-8.2)
[2021-07-23 12:54] LABS: INFLUENZA A NEGATIVE (NEGATIVE); INFLUENZA B NEGATIVE (NEGATIVE); RESPIRATORY SYNCTIAL VIRUS NEGATIVE (Negative); SARS-CoV-2 Xpert Express NEGATIVE (NEGATIVE)
[2021-07-23] MEDS ORDERED: DUONEB 0.5-3 MG/3 ml Neb IH ONE ×2 (14:07→14:36)
[2021-07-23] MEDS ORDERED: Levofloxacin 250MG Tablet PO ONE (14:08)
[2021-07-23] MEDS ORDERED: solu-MEDROL 125 MG, Sterile H2O 10 ml 2 ML IV ONE ×2 (14:08)
[2021-07-23] MEDS ORDERED: solu-MEDROL ONE (14:09)
[2021-07-23] MEDS ORDERED: Sterile H2O 10 ml IJ ONE (14:09)
[2021-07-23] MEDS ORDERED: Levofloxacin 250MG Tablet ONE (14:09)
[2021-07-23 14:17] LABS: BAND 5 % (0.0-2.0); Lymphocytes 14 % (24-44); Monocyte 5 % (0.0-12.0); Total Cells Counted 100
[2021-07-23 14:20] LABS: ANISOCYTOSIS 1+; Dohle Bodies 1+; Poikilocytosis 1+
[2021-07-23 14:21] LABS: Platelet Estimate NORMAL (NORMAL)
[2021-07-23 15:12] VITALS: O2SAT 95
[2021-07-23] MEDS ORDERED: HYDROCODONE-ACETAMIN 2.5-108/5 ML SOLUTION PO STA (15:14)
[2021-07-23] MEDS ORDERED: HYDROCODONE-ACETAMIN 2.5-108/5 ML SOLUTION ONE (15:17)
[2021-07-23 15:20] VITALS: BP 101/60; PULSE 72
--- NOTE | 2021-07-23 17:40 | XRAY ---
Indication: Fever and cough. Right chest pain. Multiple contiguous axial images obtained through the chest using 100 cc Isovue 370 contrast and PE protocol. Comparison: None Good opacification of the pulmonary arteries to include the lobar and segmental branches. No pulmonary embolus. Heart is not enlarged. Aorta is normal in course and caliber. Small subcarinal and left hilar calcified nodes. No pathologic mediastinal/hilar lymphadenopathy. Small hiatal hernia. Lungs demonstrates extensive right upper lobe bullous changes with scattered fibrosis/scarring. Also moderate right upper lobe consolidating/nonconsolidating airspace disease. Minimal left upper lobe patchy airspace disease. No effusion. Incidental small left renal lobe calcified granuloma. Bony thorax is intact. Limited upper abdomen including adrenal glands are unremarkable. Impression: 1. Negative pulmonary embolus. 2. Right upper and lesser degree left upper lobe consolidating/nonconsolidating airspace disease. 3. Extensive right upper lobe bullous changes with fibrosis/scarring. 4. Incidental small hiatal hernia and old granulomatous disease. Comment: Preliminary interpretation made by C. No critical discrepancy.
--- NOTE | 2021-07-23 17:40 | XRAY ---
Indication: Fever and cough. Comparison: January 08, 2012. Portable apical lordotic chest demonstrates new mild right upper lobe infiltrate/atelectasis. Stable right apical bolus changes and left base calcified granuloma. Heart not enlarged. Bony thorax intact. Comment: Preliminary interpretation made by [facility]. No critical discrepancy.
== END 2021-07-23 15:25 | disposition home or self-care (01) ==
LOC: ED 11:28
DX: J18.9 Pneumonia, unspecified organism (principal); R50.9 Fever, unspecified; R07.9 Chest pain, unspecified; R05.9 Cough, unspecified; R42 Dizziness and giddiness; R51.9 Headache, unspecified; M79.10 Myalgia, unspecified site; R09.81 Nasal congestion; J02.9 Acute pharyngitis, unspecified; R11.2 Nausea with vomiting, unspecified; Z72.0 Tobacco use; Z79.52 Long term (current) use of systemic steroids
CPT/HCPCS: 0241U; 36000; 36415; 71045; 71260; 80053; 83605; 83690; 85025; 93005; 93041; 94640; 96360; 96374; 96375; 99285; J2405; J2930; A9270-GY

== ENCOUNTER 2021-10-20 23:08 | Emergency (ER) | payer OTHER ==
[2021-10-20 23:28] VITALS: O2SAT 98
[2021-10-20] MEDS ORDERED: Cleocin Phosphate IV 600 MG/4 ML IM ONE (23:45)
[2021-10-20] MEDS ORDERED: Cleocin Phosphate IV 600 MG/4 ML ONE (23:47)
--- NOTE | 2021-10-21 00:11 | ERPHSYRPT ---
- History of Present Illness Time Seen by Provider: 10/20/21 23:39 Source: patient Exam Limitations: no limitations Patient Subjective Stated Complaint: pt states approx 2 weeks ago, he had a scab on his lt lower leg. states he peeled scab off and got some clear liquid from wound. redness has pregressivley increased and now has redness, warmth, and pustules surrounding. Triage Nursing Assessment: pt alert and oriented, answers questions approp. pt ambulatory with steady gait ntoed. respirations nonlabored. redness, warmth, and pustules noted to lt lateral calf. mild edema noted to lt ankle. cap refill and pedal pulse to lt wnl. Physician History: 51 years old presented in the ER with chief complaint of left lateral leg swelling and redness for 2 weeks. Patient reported initially it started as a small area of redness with scab which she removed and there was discharge and since then it is increasing in the size and having small pustules around it. Also complaining of dull aching to sharp burning pain with itching and swelling of the leg as well. No fever or chills reported. Timing/Duration: week(s) (2), gradual onset, worse Quality: burning, itchy Severity: mild, moderate Location: extremities Possible Causes: no cause identified Associated Symptoms: rash, swelling/mass/lumps, No fever Allergies/Adverse Reactions: morphine Adverse Reaction (Intermediate, Verified 10/20/21 23:30) Nausea Hx Tetanus, Diphtheria Vaccination/Date Given: No Hx Influenza Vaccination/Date Given: No Hx Pneumococcal Vaccination/Date Given: No Immunizations Up to Date: No Travel Risk - International Travel Have you traveled outside of the country in past 3 weeks: No - Coronavirus Screening Are you exhibiting any of the following symptoms?: No Close contact with a COVID-19 positive Pt in past 14-21 Days: No - Vaccine Status Have you recieved a Covid-19 vaccination: No - Review of Systems Constitutional: No Symptoms Ears, Nose, & Throat: No Symptoms Respiratory: No Symptoms Cardiac: No Symptoms Abdominal/Gastrointestinal: No Symptoms Musculoskeletal: No Symptoms Skin: Cellulitis, Skin Lesions Neurological: No Symptoms Psychological: No Symptoms Hematologic/Lymphatic: No Symptoms Immunological/Allergic: No Symptoms - Past Medical History Pertinent Past Medical History: No Neurological History: No Pertinent History ENT History: No Pertinent History Cardiac History: No Pertinent History Respiratory History: No Pertinent History Endocrine Medical History: No Pertinent History Musculoskeletal History: No Pertinent History GI Medical History: No Pertinent History History: No Pertinent History Psycho-Social History: No Pertinent History Male Reproductive Disorders: No Pertinent History Other Medical History: asthma as a child no current difficutly - Past Surgical History Past Surgical History: Yes Other Surgical History: I&D of left thigh - Social History Smoking Status: Current every day smoker How long have you smoked: 31yrs Exposure to second hand smoke: Yes Drug Use: none Patient Lives Alone: No - Nursing Vital Signs Nursing Vital Signs: Initial Vital Signs Temperature 97.4 F 10/20/21 23:13 Pulse Rate 66 10/20/21 23:13 Respiratory Rate 18 10/20/21 23:13 Blood Pressure 126/75 10/20/21 23:13 O2 Sat by Pulse Oximetry 98 10/20/21 23:13 Pain Scale Pain Intensity 5 - Physical Exam General Appearance: no apparent distress Eye Exam: PERRL/EOMI Neck Exam: normal inspection, full range of motion Respiratory Exam: normal breath sounds, lungs clear Cardiovascular Exam: regular rate/rhythm, normal heart sounds Back Exam: normal inspection, normal range of motion Extremity Exam: inflammation, swelling (Left lateral calf with erythema and multiple pustules., Warm and mildly tender to touch, blanchable. No calf tenderness otherwise. Distal neurovascular well intact), tenderness Neurologic Exam: alert, oriented x 3, cooperative Skin Exam: normal color SpO2 Interpretation: normal SpO2: 98 O2 Delivery: Room Air Ordered Tests: Medication Summary Discontinued Medications Generic Name Dose Route Start Last Admin Trade Name Yadira PRN Reason Stop Dose Admin Clindamycin Phosphate 600 mg 10/20/21 23:45 10/20/21 23:51 Clindamycin Phosphate 600 Mg/4 Ml Vial IM 10/20/21 23:46 600 mg STAT ONE Administration Clindamycin Phosphate Confirm 10/20/21 23:47 Clindamycin Phosphate 600 Mg/4 Ml Vial Administered 10/20/21 23:48 Dose 600 mg .ROUTE .STK-MED ONE - Progress Progress: unchanged Progress Note: 10/21/21 00:27 Patient does not want any pain medication. I believe he has cellulitis, started on clindamycin. Up-to-date with tetanus. Outpatient follow-up recommended. Discussed signs symptoms of worsening needing return to ER which he seems understanding Counseled pt/family regarding: diagnosis, need for follow-up - Departure Departure Disposition: Home Clinical Impression: Cellulitis of leg without foot, left Condition: Stable Critical Care Time: No Referrals: LAILA PRECIADO MD [Primary Care Provider] - Follow up/PCP as directed (1-2 days for reevaluation) Instructions: MRSA (DC) Additional Instructions: Take Tylenol/ibuprofen as needed for pain. Continue with antibiotics. Follow- up with primary care for reevaluation. Return to ER for increasing pain swelling redness or if develop fever chills etc. Prescriptions: clindamycin HCL [Clindamycin HCl] 300 mg PO QID 7 Days #28 cap
[2021-10-21 00:34] VITALS: BP 118/66; PULSE 67
== END 2021-10-21 00:31 | disposition home or self-care (01) ==
LOC: ED 23:08
DX: L03.116 Cellulitis of left lower limb (principal); M79.662 Pain in left lower leg; Z72.0 Tobacco use; Z28.310 Unvaccinated for COVID-19
CPT/HCPCS: 96372; 99282